=== PATIENT | female | born 1950 | race Two or more races ===

== ENCOUNTER 2018-07-23 10:38 | Emergency (ER) | payer MEDICARE, BC ==
[~2018-07-23] VITALS: Ht 157.5 cm; Wt 81.4 kg
[2018-07-23] MEDS ORDERED: proMETHazine 25mg rectal suppository RC ONE (12:00)
[2018-07-23] MEDS ORDERED: HYDROmorphone 1 mg/ml syringe IM ONE ×2 (12:35→12:55)
[2018-07-23 13:19] VITALS: BP 149/83
== END 2018-07-23 13:20 | disposition home or self-care (01) ==
LOC: ER 10:38
DX: M67.912 Unspecified disorder of synovium and tendon, left shoulder (principal); G89.29 Other chronic pain; Z88.6 Allergy status to analgesic agent; Z88.8 Allergy status to other drugs, medicaments and biological substances; Z91.018 Allergy to other foods
CPT/HCPCS: 96372; 99283; J1170

== ENCOUNTER 2021-12-21 10:33 | Inpatient (IN) | payer MEDICARE, BC ==
[2021-12-17 11:59] LABS: BASOPHILS % (AUTO) 0.6 % (0-1); EOSINOPHILS # (AUTO) 0.2 X10'3 (0-0.9); LYMPHOCYTES # (AUTO) 2.3 X10'3 (1.1-4.8); LYMPHOCYTES % (AUTO) 36.2 % (21-51); MEAN CORPUSCULAR HEMOGLOBIN 30.5 PG (27.0-31.0); MEAN CORPUSCULAR HGB CONC 32.9 g/dL (33.0-36.5); MEAN CORPUSCULAR VOLUME 92.6 FL (78-98); MEAN PLATELET VOLUME 7.8 FL (7.4-10.4); MONOCYTES # (AUTO) 0.6 X10'3 (0-0.9); MONOCYTES % (AUTO) 9.8 % (2-12); NEUTROPHILS # (AUTO) 3.1 X10'3 (1.8-7.7); NEUTROPHILS % (AUTO) 50.4 % (42-75); PRE OP HEMATOCRIT 42.1 % (35.0-45.0); PRE OP HEMOGLOBIN 13.8 g/dL (12.0-16.0); PRE OP PLATELET COUNT 249 X10'3 (140-440); RED BLOOD COUNT 4.54 X10'6 (4.20-5.60); RED CELL DISTRIBUTION WIDTH 13.8 % (11.5-14.5)
[2021-12-17 12:20] LABS: ALBUMIN 3.8 G/DL (3.4-5.0); ALKALINE PHOSPHATASE 100 IU/L (46-116); BLOOD UREA NITROGEN 11 MG/DL (7-18); BUN/CREATININE RATIO 19.6 (6.6-38.0); CALCIUM 9.2 MG/DL (8.5-10.1); CHLORIDE 106 MMOL/L (99-107); CREATININE 0.56 MG/DL (0.40-0.90); PRE OP ALT 62 U/L (30-65); PRE OP ANION GAP 11 (8-16); PRE OP AST 65 U/L (10-37); PRE OP BILIRUB, TOTAL 0.8 MG/DL (0.0-1.0); PRE OP GLUCOSE 148 MG/DL (70-104); PRE OP POTASSIUM 3.9 MMOL/L (3.4-5.1); PRE OP SODIUM 144 MMOL/L (135-145); TOTAL CARBON DIOXIDE 27.5 MMOL/L (24-32); TOTAL PROTEIN 7.5 G/DL (6.4-8.2); eGFR > 90 ML/MIN
[~2021-12-21] VITALS: Ht 157.5 cm; Wt 81.8 kg
[2021-12-21] VITALS (17 sets, daily range): BP systolic 124–165; BP diastolic 64–84
[~2021-12-21 10:33] MED LIST: CHOL20002 PO; ELDERBERRY GUMMY; EMPA10TA PO; GARLIC; GING550C4 PO; MEGA RED; MULTIVITAMIN PO; OMEG-133 PO; PREVAGEN; TURM500C4 PO; famotidine 20mg tablet PO ONE; ringers solution, lacted 1,000 ML IV SCH
--- NOTE | 2021-12-21 13:00 | NUR ---
PT PREPARED FOR RIGHT SHOULDER SURGERY, IV STARTED, PT WAS A VERY DIFFICULT STICK, LEFT THUMB IMMOBILIZER REMOVED FROM PT AND PLACED IN BELONGINGS BAG, PT BECAME NAUSEATED AFTER TXA TABS BUT DID NOT VOMIT. PT SENT TO THE OPERATING ROOM WITH HER CONTACT LENS IN, SCREENER OPERATOR AND ANESTHESIA AWARE. PT WITH INCREASED PAIN IN HER BACK FROM LYING ON STRETCHER, REPOSITIONED AND WARM BLANKET GIVEN WITH GOOD RESULTS BILATERAL ARMS WITH SWELLING AND PAIN, LEFT HAND WITH DISLOCATED THUMB RECENTLY, THUMB AREA PAINFUL AND SLIGHTLY SWOLLEN, RIGHT HAD HAS HAD MUTPLE SURGERIES ON IT, PAINFUL WITH SWELLING. BILATERAL RADIAL PULSES PRESENT, SENSATION INTACT. PT ABLE TO MOVE BOTH HANDS TO COMMAND. PINK WARM AND DRY
[2021-12-21] MEDS ORDERED: vancomycin/NS 1 GM in NS 250 ML IV ONE (13:15)
[2021-12-21] MEDS ORDERED: cefazolin/dext.iso 2gm/50ml IV ONE (13:30)
[2021-12-21] MEDS ORDERED: tranexamic acid 650mg tablet PO ONE (13:30)
[2021-12-21] MEDS ORDERED: ROPIVAcaine 0.5% (5mg/ml) 30ml vial ONE ×2 (14:07→14:30)
[2021-12-21] MEDS ORDERED: midazolam 1 mg/ML 2ml injection ONE (14:13)
[2021-12-21] MEDS ORDERED: FENTANYL CITRATE/PF 50 MCG/1 ML VIAL ONE ×3 (14:13→16:29)
[2021-12-21] MEDS ORDERED: rocuronium 10mg/ml inj IV ONE (14:30)
[2021-12-21] MEDS ORDERED: LIDOcaine 1%/PF 5ML 10 MG/ML VIAL ONE (14:30)
[2021-12-21] MEDS ORDERED: propofol inj 20 ML IV ONE (14:30)
[2021-12-21] MEDS ORDERED: sevoflurane 250ml liquid IH ONE (14:32)
[2021-12-21] MEDS ORDERED: ondansetron/PF 4mg/2ml inj IV PRN ×2 (15:20→16:25)
[2021-12-21] MEDS ORDERED: ringers solution, lacted 1,000 ML IV SCH (15:20)
[2021-12-21] MEDS ORDERED: meperidine/PF 25mg/ml syringe IV PRN (15:20)
[2021-12-21] MEDS ORDERED: neostigmine methylsulfate 1 MG/ML 10ml vial ONE (16:13)
[2021-12-21] MEDS ORDERED: dexamethasone sod phosphate 4mg/ml inj. ONE (16:13)
[2021-12-21] MEDS ORDERED: ondansetron/PF 4mg/2ml inj ONE (16:13)
[2021-12-21] MEDS ORDERED: glycopyrrolate 0.2mg/ml inj ONE (16:13)
[2021-12-21] MEDS ORDERED: diphenhydrAMINE 25mg capsule PO PRN ×2 (16:25)
[2021-12-21] MEDS ORDERED: magnesium hydroxide 30ml (MOM) UD suspension PO PRN (16:25)
[2021-12-21] MEDS ORDERED: bisacodyl 10mg suppository rectal RC PRN (16:25)
[2021-12-21] MEDS ORDERED: HYDROmorphone inj. 0.5 MG/0.5 ML DISP.SYRIN IV PRN (16:25)
[2021-12-21] MEDS ORDERED: HYDROmorphone 1 mg/ml syringe IV PRN (16:25)
[2021-12-21] MEDS ORDERED: oxyCODONE IR 5mg (immed. release) tablet PO PRN ×2 (16:25)
[2021-12-21] MEDS ORDERED: naloxone 0.4 mg/ml inj IV PRN (16:25)
[2021-12-21] MEDS ORDERED: acetaminophen 325mg tablet PO PRN (16:25)
--- NOTE | 2021-12-21 16:32 | NUR ---
Received from OR via BED, accompanied by Anesthesiologist DR GORMAN and report given by Anesthesiologist AND APPRENTICESHIP REPRESENTATIVE. PT DROWSY, DENIES PAIN. RIGHT SHOULDER W/ SHOULDER WRAP, SALVADOR KNOX, POWDER PACK, SLING. Addendum: 12/21/21 at 1719 by Carey Cartagena RN Amended: Links added.
[2021-12-21] MEDS: ROPIVAcaine 0.2%/PF PUMP/bolus 545 ML INTERSCALE SCH (17:27)
--- NOTE | 2021-12-21 17:52 | NUR ---
Report called to receiving nurse. Transferred via BED ON BAGS OF Belongings WITH CELL PHONE TO ROOM 401. RECEIVING RN AT BEDSIDE TO RECEIVE PT, BLL, CALL LIGHT GIVEN, SIDE RAILS UP X 2. Special Issues communicated to receiving nurse. YES. Addendum: 12/21/21 at 1801 by Carey Cartagena RN Amended: Links added.
--- NOTE | 2021-12-21 18:00 | NUR ---
Pt arrived to the floor at 1800, patient arrived stable, vitals are stable and patient is A&O. Did not have time to do a full assessment before end of shift.
[2021-12-21] MEDS: potassium cl 20mEq in 1/2 NS 1,000 ML IV SCH (19:29)
[2021-12-21] MEDS: sennosides 8.6mg tablet PO SCH (19:30)
[2021-12-21] MEDS: acetaminophen 325mg tablet PO SCH (19:38)
[2021-12-21] MEDS ORDERED: non-formulary drug (Turmeric/Turmeric Root Extract (Turmeric 500 mg Capsule) 1 CAP) PO SCH (20:00)
[2021-12-21] MEDS ORDERED: vancomycin/NS 1 GM ADD-VANTAGE 250 ML IV SCH (20:00)
[2021-12-21] MEDS: ceFAZolin/D5W- 1GM premix 50 ML IV SCH (23:10)
[2021-12-22] MEDS: potassium cl 20mEq in 1/2 NS 1,000 ML IV SCH ×4 (00:25→19:32)
[2021-12-22 02:00] VITALS: BP 124/63
[2021-12-22] MEDS: acetaminophen 325mg tablet PO SCH ×5 (02:07→20:41)
[2021-12-22 06:00] VITALS: BP 120/63
[2021-12-22 07:27] LABS: BASOPHILS % (AUTO) 0.1 % (0-1); EOSINOPHILS % (AUTO) 0 % (0-6); HEMATOCRIT 38.2 % (35.0-45.0); HEMOGLOBIN 12.9 g/dl (12.0-16.0); LYMPHOCYTES # (AUTO) 1.4 X10'3 (1.1-4.8); LYMPHOCYTES % (AUTO) 17.3 % (21-51); MEAN CORPUSCULAR HEMOGLOBIN 31.9 PG (27.0-31.0); MEAN CORPUSCULAR HGB CONC 33.8 g/dL (33.0-36.5); MEAN CORPUSCULAR VOLUME 94.4 FL (78-98); MEAN PLATELET VOLUME 8.4 FL (7.4-10.4); MONOCYTES # (AUTO) 0.5 X10'3 (0-0.9); MONOCYTES % (AUTO) 6.1 % (2-12); NEUTROPHILS # (AUTO) 6.2 X10'3 (1.8-7.7); NEUTROPHILS % (AUTO) 76.5 % (42-75); PLATELET COUNT 243 X10'3 (140-440); RED BLOOD COUNT 4.04 X10'6 (4.20-5.60); RED CELL DISTRIBUTION WIDTH 13.9 % (11.5-14.5); WHITE BLOOD COUNT 8.2 X10'3 (4.5-11.0)
[2021-12-22 07:32] LABS: ANION GAP 12 (8-16); CHLORIDE 106 MMOL/L (99-107); POTASSIUM 4.3 MMOL/L (3.5-5.1); SODIUM 140 MMOL/L (135-145)
[2021-12-22] MEDS ORDERED: GINGER ROOT PO SCH (08:00)
[2021-12-22] MEDS: aspirin 325mg tablet PO SCH (08:21)
[2021-12-22] MEDS: EMPAGLIFLOZIN 10 MG TABLET PO SCH (08:21)
[2021-12-22] MEDS: cholecalciferol (vitamin D3) 1,000 unit (25mcg) tablet PO SCH (08:22)
[2021-12-22] MEDS: omega-3 acid ethyl esters 1GM capsule PO SCH (08:22)
[2021-12-22] MEDS: ceFAZolin/D5W- 1GM premix 50 ML IV SCH (09:13)
[2021-12-22 10:00] VITALS: BP 141/78
--- NOTE | 2021-12-22 13:17 | NUR ---
DM/Joint surgery consults: Pt s/p R shoulder surgery this admit hx T2DM A1C 8.0% this admit per EMR. Pt seen by RD for written/verbal DM/high protein eds w/ RD contact information provided. Pt reports takes no DM meds at home though does have appointment in near future w/ new MD and dietitian. Pt reports typically eats convenience foods from the store though is aware of appropriate carb portions and practices moderation. RD encouraged pt to contact dietitian's office if further questions/concerns. Pt reports unable to cut foods post-op and is agreeable to double proteins BIDLD for satiety; dietary notified. Addendum: 12/22/21 at [address] Amended: Links added.
--- NOTE | 2021-12-22 17:20 | NUR ---
On Q increased from 10 to 12 for pain /. New On Q ball requested.
[2021-12-22 18:00] VITALS: BP 145/56
--- NOTE | 2021-12-22 18:13 | NUR ---
Problems reprioritized. Patient report given, questions answered & plan of care reviewed with Abby RANGEL.
[2021-12-22] MEDS: sennosides 8.6mg tablet PO SCH (19:28)
[2021-12-22 22:00] VITALS: BP 130/68
[2021-12-23] MEDS: acetaminophen 325mg tablet PO SCH ×3 (02:00→14:00)
--- NOTE | 2021-12-23 06:23 | NUR ---
Problems reprioritized. Patient report given, questions answered & plan of care reviewed with wilfredo Merchant.
--- NOTE | 2021-12-23 06:31 | NUR ---
Patient in room ORTHO 4015. I have received report from barron RANGEL and had the opportunity to ask questions and assume patient care.
[2021-12-23 07:21] VITALS: BP 118/57
[2021-12-23 07:51] LABS: BASOPHILS % (AUTO) 0.2 % (0-1); EOSINOPHILS # (AUTO) 0.1 X10'3 (0-0.9); EOSINOPHILS % (AUTO) 1.3 % (0-6); HEMATOCRIT 38.3 % (35.0-45.0); HEMOGLOBIN 12.9 g/dl (12.0-16.0); LYMPHOCYTES # (AUTO) 2.5 X10'3 (1.1-4.8); LYMPHOCYTES % (AUTO) 24.1 % (21-51); MEAN CORPUSCULAR HEMOGLOBIN 31.8 PG (27.0-31.0); MEAN CORPUSCULAR HGB CONC 33.6 g/dL (33.0-36.5); MEAN CORPUSCULAR VOLUME 94.7 FL (78-98); MEAN PLATELET VOLUME 9.2 FL (7.4-10.4); MONOCYTES # (AUTO) 1.1 X10'3 (0-0.9); MONOCYTES % (AUTO) 10.5 % (2-12); NEUTROPHILS # (AUTO) 6.6 X10'3 (1.8-7.7); NEUTROPHILS % (AUTO) 63.9 % (42-75); PLATELET COUNT 236 X10'3 (140-440); RED BLOOD COUNT 4.05 X10'6 (4.20-5.60); RED CELL DISTRIBUTION WIDTH 14.1 % (11.5-14.5); WHITE BLOOD COUNT 10.3 X10'3 (4.5-11.0)
[2021-12-23] MEDS: potassium cl 20mEq in 1/2 NS 1,000 ML IV SCH (08:25)
[2021-12-23] MEDS: EMPAGLIFLOZIN 10 MG TABLET PO SCH (08:25)
[2021-12-23] MEDS: ROPIVAcaine 0.2% (10 MG/5 ML) BOLUS INJECTION INTERSCALE PRN ×2 (08:25→19:40)
[2021-12-23] MEDS: cholecalciferol (vitamin D3) 1,000 unit (25mcg) tablet PO SCH (08:26)
[2021-12-23] MEDS: omega-3 acid ethyl esters 1GM capsule PO SCH (08:26)
[2021-12-23] MEDS: aspirin 325mg tablet PO SCH (08:26)
[2021-12-23 10:00] VITALS: BP 129/66
[2021-12-23] MEDS: ROPIVAcaine 0.2%/PF PUMP/bolus 545 ML INTERSCALE SCH (15:20)
[2021-12-23] MEDS ORDERED: acetaminophen 325mg tablet PO PRN (16:25)
[2021-12-23 18:00] VITALS: BP 163/67
--- NOTE | 2021-12-23 18:05 | NUR ---
Patient in room ORTHO 4015. I have received report from CLAIRE Merchant and had the opportunity to ask questions and assume patient care.
--- NOTE | 2021-12-23 18:52 | NUR ---
patient appears stable ON Q ball replaced. patient up to BR working with PT. BS stable. DRessing CDI. report given to Annie RANGEL
[2021-12-23] MEDS: sennosides 8.6mg tablet PO SCH (20:02)
[2021-12-23 22:00] VITALS: BP 143/54
[2021-12-24 05:00] VITALS: BP_SYST 126; BP_SYST 127; BP_DIAS 66; BP_DIAS 67
[2021-12-24 06:23] LABS: BASOPHILS % (AUTO) 0.4 % (0-1); EOSINOPHILS # (AUTO) 0.3 X10'3 (0-0.9); EOSINOPHILS % (AUTO) 3.6 % (0-6); HEMATOCRIT 38.7 % (35.0-45.0); LYMPHOCYTES # (AUTO) 2.8 X10'3 (1.1-4.8); LYMPHOCYTES % (AUTO) 32.8 % (21-51); MEAN CORPUSCULAR HEMOGLOBIN 31.8 PG (27.0-31.0); MEAN CORPUSCULAR HGB CONC 33.5 g/dL (33.0-36.5); MEAN CORPUSCULAR VOLUME 94.9 FL (78-98); MEAN PLATELET VOLUME 8.3 FL (7.4-10.4); MONOCYTES # (AUTO) 0.9 X10'3 (0-0.9); MONOCYTES % (AUTO) 10.3 % (2-12); NEUTROPHILS # (AUTO) 4.5 X10'3 (1.8-7.7); NEUTROPHILS % (AUTO) 52.9 % (42-75); PLATELET COUNT 238 X10'3 (140-440); RED BLOOD COUNT 4.08 X10'6 (4.20-5.60); RED CELL DISTRIBUTION WIDTH 13.8 % (11.5-14.5); WHITE BLOOD COUNT 8.4 X10'3 (4.5-11.0)
--- NOTE | 2021-12-24 06:37 | NUR ---
Patient in room ORTHO 4015. I have received report from AFRICA RANGEL and had the opportunity to ask questions and assume patient care.
[2021-12-24] MEDS: aspirin 325mg tablet PO SCH (08:04)
[2021-12-24] MEDS: EMPAGLIFLOZIN 10 MG TABLET PO SCH (08:04)
[2021-12-24] MEDS: omega-3 acid ethyl esters 1GM capsule PO SCH (08:04)
[2021-12-24] MEDS: cholecalciferol (vitamin D3) 1,000 unit (25mcg) tablet PO SCH (08:04)
[2021-12-24 10:00] VITALS: BP 140/66
--- NOTE | 2021-12-24 15:11 | NUR ---
PATIENT DISCHARGED TRANSPORTED TO [facility] VIA [facility]. PIV REMOVED, REPORT CALLED
== END 2021-12-24 15:00 | DRG 483 ==
LOC: PAS IN 10:44 → ORTHO 4S 17:48
PROVIDERS: ADMIT Orthopaedic Surgery; ATTEND Orthopaedic Surgery
PROC: 0LS30ZZ Reposition Right Upper Arm Tendon, Open Approach (ICD-10-PCS; 2021-12-21)
PROC: 3E0T3BZ Introduction of Anesthetic Agent into Peripheral Nerves and Plexi, Percutaneous Approach (ICD-10-PCS; 2021-12-21)
PROC: 0RRJ00Z Replacement of Right Shoulder Joint with Reverse Ball and Socket Synthetic Substitute, Open Approach (ICD-10-PCS; principal; 2021-12-21 14:32)
DX: M19.011 Primary osteoarthritis, right shoulder (principal); M75.101 Unspecified rotator cuff tear or rupture of right shoulder, not specified as traumatic; M77.9 Enthesopathy, unspecified
CPT/HCPCS: 36415; 80051; 80053; 82948; 83036; 85025; 87081; 87635; 97110; 97116; 97161; 97530; A4618; A7000; C1776; G0378; J0690; J1100; J2175; J2250; J2405; J2704; J2710; J2795; J3010; J3370; J3480; J3490; J7120

== ENCOUNTER 2022-08-15 07:18 | Day surgery (SDC) | payer MEDICARE, BC ==
[2022-08-10 17:23] LABS: ALBUMIN 3.5 G/DL (3.4-5.0); ALKALINE PHOSPHATASE 96 IU/L (46-116); BASOPHILS % (AUTO) 0.4 % (0-1); BLOOD UREA NITROGEN 17 MG/DL (7-18); BUN/CREATININE RATIO 22.7 (6.6-38.0); CALCIUM 9.3 MG/DL (8.5-10.1); CHLORIDE 106 MMOL/L (99-107); CREATININE 0.75 MG/DL (0.40-0.90); EOSINOPHILS # (AUTO) 0.2 X10'3 (0-0.9); EOSINOPHILS % (AUTO) 2.4 % (0-6); LYMPHOCYTES # (AUTO) 2.4 X10'3 (1.1-4.8); LYMPHOCYTES % (AUTO) 34.8 % (21-51); MEAN CORPUSCULAR HEMOGLOBIN 31.6 PG (27.0-31.0); MEAN CORPUSCULAR HGB CONC 33.9 g/dL (33.0-36.5); MEAN CORPUSCULAR VOLUME 93.2 FL (78-98); MEAN PLATELET VOLUME 7.9 FL (7.4-10.4); MONOCYTES # (AUTO) 0.7 X10'3 (0-0.9); MONOCYTES % (AUTO) 10.1 % (2-12); NEUTROPHILS # (AUTO) 3.7 X10'3 (1.8-7.7); NEUTROPHILS % (AUTO) 52.3 % (42-75); PRE OP ALT 29 U/L (30-65); PRE OP ANION GAP 16 (8-16); PRE OP AST 24 U/L (10-37); PRE OP BILIRUB, TOTAL 0.5 MG/DL (0.0-1.0); PRE OP GLUCOSE 190 MG/DL (70-104); PRE OP HEMATOCRIT 41.8 % (35.0-45.0); PRE OP HEMOGLOBIN 14.2 g/dL (12.0-16.0); PRE OP PLATELET COUNT 241 X10'3 (140-440); PRE OP POTASSIUM 3.9 MMOL/L (3.4-5.1); PRE OP SODIUM 148 MMOL/L (135-145); RED BLOOD COUNT 4.48 X10'6 (4.20-5.60); RED CELL DISTRIBUTION WIDTH 13.7 % (11.5-14.5); TOTAL CARBON DIOXIDE 26.3 MMOL/L (24-32); TOTAL PROTEIN 7.1 G/DL (6.4-8.2); eGFR 76 ML/MIN
[2022-08-15] VITALS (11 sets, daily range): BP systolic 128–157; BP diastolic 65–89
[~2022-08-15] VITALS: Ht 157.5 cm; Wt 78.2 kg
[~2022-08-15 07:18] MED LIST changes: +BUPIVAcaine 0.5% inj/PF 30 ML ONE; -CHOL20002 PO; +CHOL50002 PO; -ELDERBERRY GUMMY; -GARLIC; -MEGA RED; +MULT-1130 PO; -MULTIVITAMIN PO; -OMEG-133 PO; -PREVAGEN; +PREVAGEN PO; -TURM500C4 PO; +ceFAZolin inj. 2,000 MG in dextrose 5%-water 100 ML IV ONE
[2022-08-15] MEDS ORDERED: LIDOcaine 1% 30ml preserv. free vial ONE (07:32)
[2022-08-15] MEDS ORDERED: LIDOcaine 1% (10mg/ml) 2ml vial ONE (08:46)
[2022-08-15] MEDS ORDERED: fentaNYL/PF 50MCG/1 ML 2ML syringe ONE (09:46)
[2022-08-15] MEDS ORDERED: MIDAZolam 1 MG/ML 5ML VIAL ONE ×2 (09:46→10:10)
[2022-08-15] MEDS ORDERED: LIDOcaine 2% (20mg/ml) 5ml vial ONE (10:07)
[2022-08-15] MEDS ORDERED: dexamethasone sod phosphate 4mg/ml inj. ONE (10:07)
[2022-08-15] MEDS ORDERED: ROPIVAcaine 0.5% (5mg/ml) 30ml vial ONE (10:07)
[2022-08-15] MEDS ORDERED: LIDOcaine 1%/PF 5ML 10 MG/ML VIAL ONE (10:07)
[2022-08-15] MEDS ORDERED: ondansetron/PF 4mg/2ml inj IV PRN (10:25)
[2022-08-15] MEDS ORDERED: meperidine/PF 25mg/ml syringe IV PRN ×3 (10:25)
[2022-08-15] MEDS ORDERED: proCHLORperazine 10 MG/2 ml inj IV PRN (10:25)
[2022-08-15] MEDS ORDERED: ringers solution, lacted 1,000 ML IV SCH (10:25)
[2022-08-15] MEDS ORDERED: BUPIVAcaine 0.5% inj/PF 30 ml vial IJ ONE (10:25)
--- NOTE | 2022-08-15 10:47 | NUR ---
Received from OR via [facility], accompanied by Anesthesiologist and report given by VANCE Anesthesiologist. PATIENT WAKING UP, DENIES PAIN, V/S WNL, SCD ON, PIV 20G TO RIGHT WRIST, LEFT WRIST DRESSING C/D/I. APPLIED SLING, ICE AND ELEVATED LUE. Addendum: 08/15/22 at 1203 by Colin White RN Amended: Links added.
--- NOTE | 2022-08-15 12:02 | NUR ---
ALL DISCHARGE CRITERIA HAS BEEN MET. VSS, PAIN AT A TOLERABLE LEVEL, VOIDING AND ABLE TO SAFELY AMBULATE AND TRANSFER SELF. IV TAKEN OUT WITHOUT ANY COMPLICATIONS. ALL DISCHARGE INSTRUCTIONS COVERED WITH PATIENT AND ALL QUESTIONS ANSWERED. PATIENT TAKEN OUT VIA WHEELCHAIR WITH ALL BELONGINGS TO PERSONAL VEHICLE WHERE FRIEND DROVE PATIENT HOME. Addendum: 08/15/22 at 1204 by Colin White RN Amended: Links added.
== END 2022-08-15 12:02 | disposition home or self-care (01) ==
LOC: PAS 07:18
PROVIDERS: ATTEND Orthopaedic Surgery Hand Surgery
DX: M18.12 Unilateral primary osteoarthritis of first carpometacarpal joint, left hand (principal); M79.645 Pain in left finger(s); I44.0 Atrioventricular block, first degree; Z88.6 Allergy status to analgesic agent; Z88.5 Allergy status to narcotic agent; Z88.8 Allergy status to other drugs, medicaments and biological substances; Z88.4 Allergy status to anesthetic agent; Z91.018 Allergy to other foods; Z79.899 Other long term (current) drug therapy; G89.18 Other acute postprocedural pain; Z90.710 Acquired absence of both cervix and uterus; Z98.890 Other specified postprocedural states
CPT/HCPCS: 25312; 25447; 36415; 64417; 76942; 80053; 82948; 85025; 93005; A6222; J0690; J1100; J2250; J2405; J2795; J3010; J3490; J7030; J7060; J7120; S0020; Z7506; Z7508; Z7512; A4215; A4565; A4618; A7000

== ENCOUNTER 2023-06-23 06:46 | Day surgery (SDC) | payer MEDICARE, BC ==
[2023-06-20 16:22] LABS: BASOPHILS % (AUTO) 0.1 % (0-1); EOSINOPHILS # (AUTO) 0.2 X10'3 (0-0.9); EOSINOPHILS % (AUTO) 3.5 % (0-6); LYMPHOCYTES # (AUTO) 1.9 X10'3 (1.1-4.8); LYMPHOCYTES % (AUTO) 34.8 % (21-51); MEAN CORPUSCULAR HEMOGLOBIN 31.1 PG (27.0-31.0); MEAN CORPUSCULAR HGB CONC 32.8 g/dL (33.0-36.5); MEAN CORPUSCULAR VOLUME 94.8 FL (78-98); MEAN PLATELET VOLUME 7.8 FL (7.4-10.4); MONOCYTES # (AUTO) 0.5 X10'3 (0-0.9); MONOCYTES % (AUTO) 9.4 % (2-12); NEUTROPHILS # (AUTO) 2.9 X10'3 (1.8-7.7); NEUTROPHILS % (AUTO) 52.2 % (42-75); PRE OP HEMATOCRIT 42.5 % (35.0-45.0); PRE OP HEMOGLOBIN 13.9 g/dL (12.0-16.0); PRE OP PLATELET COUNT 220 X10'3 (140-440); PRE OP WHITE BLOOD COUNT 5.6 10'3 (4.8-10.8); RED BLOOD COUNT 4.48 X10'6 (4.20-5.60); RED CELL DISTRIBUTION WIDTH 14.2 % (11.5-14.5)
[2023-06-20 16:40] LABS: ALBUMIN 3.7 G/DL (3.4-5.0); ALKALINE PHOSPHATASE 85 IU/L (46-116); BLOOD UREA NITROGEN 11 MG/DL (7-18); BUN/CREATININE RATIO 13.6 (10.0-20.0); CALCIUM 9.4 MG/DL (8.5-10.1); CHLORIDE 105 MMOL/L (99-107); CREATININE 0.81 MG/DL (0.40-0.90); PRE OP ALT 34 U/L (30-65); PRE OP ANION GAP 6 (8-16); PRE OP AST 37 U/L (10-37); PRE OP BILIRUB, TOTAL 0.7 MG/DL (0.0-1.0); PRE OP SODIUM 141 MMOL/L (135-145); TOTAL CARBON DIOXIDE 30.5 MMOL/L (24-32); TOTAL PROTEIN 7.3 G/DL (6.4-8.2); eGFR 69 ML/MIN
[2023-06-20 17:03] LABS: PRE OP GLUCOSE 247 MG/DL (70-104); PRE OP POTASSIUM 3.3 MMOL/L (3.4-5.1)
[2023-06-23] VITALS (7 sets, daily range): BP systolic 113–137; BP diastolic 52–77; PULSE 66–78; RESP 14–16; TEMP 97.9; O2SAT 96–98
[~2023-06-23] VITALS: Ht 157.5 cm; Wt 79.1 kg
[~2023-06-23 06:46] MED LIST changes: -BUPIVAcaine 0.5% inj/PF 30 ML ONE; -CHOL50002 PO; +CHOL50004 PO; +COFF1CAP3; -GING550C4 PO; +GREEN VIBRANCE; +MECO10005; -MULT-1130 PO; +ROSU20TA73 PO; +SUPER BEETS; +[UNRECOGNIZED DRUG - OTHER]; -ceFAZolin inj. 2,000 MG in dextrose 5%-water 100 ML IV ONE; +cefazolin 2gm/D5W 100mL 100 ML IV ONE
[2023-06-23] MEDS ORDERED: labetalol 20mg/4ml (5mg/ml) syringe IV PRN (07:50)
[2023-06-23] MEDS ORDERED: proCHLORperazine 10 MG/2 ml inj IV PRN (07:50)
[2023-06-23] MEDS ORDERED: ringers solution, lacted 1,000 ML IV SCH (07:50)
[2023-06-23] MEDS ORDERED: proMETHazine 25mg rectal suppository RC PRN (07:50)
[2023-06-23] MEDS ORDERED: meperidine/PF 25mg/ml syringe IV PRN ×2 (07:50)
[2023-06-23] MEDS ORDERED: ondansetron/PF 4mg/2ml inj IV PRN (07:50)
[2023-06-23] MEDS ORDERED: fentaNYL/PF 50MCG/1 ML 2ML syringe ONE (08:59)
[2023-06-23] MEDS ORDERED: MIDAZolam 1mg/ml 10ml vial ONE (08:59)
[2023-06-23] MEDS ORDERED: LIDOcaine 0.5% (5mg/ml) 50ml vial ONE (09:00)
[2023-06-23] MEDS ORDERED: BUPIVAcaine/PF 2.5 mg/ml (0.25%) 30ml vial ONE (09:12)
--- NOTE | 2023-06-23 09:45 | NUR ---
Received from OR via BED, accompanied by Anesthesiologist and report given by Anesthesiologist. PATIENT WAKING UP, NO S/S OF PAIN, V/S WNL, SCD ON, 20G TO RUE, LEFT WRIST DRESSING CDI W/ SLING. ICE AND ELEVATED RUE.
--- NOTE | 2023-06-23 10:15 | NUR ---
PATIENT A&OX4, DENIES PAIN, V/S WNL, SCD OFF, 20G TO RUE D/C, LEFT WRIST DRESSING CDI W/ SLING. ICE AND ELEVATED LUE. I HAVE REVIEWED D/C INSTRUCTIONS WITH PATIENT INSTRUCTIONS WITH PATIENT AND THEY HAVE VERBALIZED UNDERSTANDING. PATIENT D/C HOME WITH ALL BELONGINGS AND FAMILY TRANSPORTED PATIENT HOME.
== END 2023-06-23 10:15 | disposition home or self-care (01) ==
LOC: PAS 06:46
PROVIDERS: ATTEND Orthopaedic Surgery Hand Surgery
DX: G56.02 Carpal tunnel syndrome, left upper limb (principal); M72.0 Palmar fascial fibromatosis [Dupuytren]; M65.332 Trigger finger, left middle finger; Z79.82 Long term (current) use of aspirin; Z79.899 Other long term (current) drug therapy; Z90.49 Acquired absence of other specified parts of digestive tract; Z90.710 Acquired absence of both cervix and uterus; Z96.619 Presence of unspecified artificial shoulder joint; Z98.49 Cataract extraction status, unspecified eye; Z98.890 Other specified postprocedural states; Z88.5 Allergy status to narcotic agent; Z88.6 Allergy status to analgesic agent; Z88.8 Allergy status to other drugs, medicaments and biological substances
CPT/HCPCS: 25111; 26055; 26121; 36415; 64721; 80053; 82948; 85025; J0690; J2250; J3010; J3490; J7030; J7120; Z7506; Z7512; A4215; A6449

== ENCOUNTER 2023-07-10 11:16 | Inpatient (IN) | payer MEDICARE, BC ==
[2023-07-05 11:00] LABS: BASOPHILS % (AUTO) 0.4 % (0-1); EOSINOPHILS # (AUTO) 0.3 X10'3 (0-0.9); EOSINOPHILS % (AUTO) 4.2 % (0-6); LYMPHOCYTES # (AUTO) 2.4 X10'3 (1.1-4.8); LYMPHOCYTES % (AUTO) 32.9 % (21-51); MEAN CORPUSCULAR HEMOGLOBIN 31.4 PG (27.0-31.0); MEAN CORPUSCULAR HGB CONC 33.7 g/dL (33.0-36.5); MEAN CORPUSCULAR VOLUME 93.4 FL (78-98); MEAN PLATELET VOLUME 7.8 FL (7.4-10.4); MONOCYTES # (AUTO) 0.7 X10'3 (0-0.9); MONOCYTES % (AUTO) 9.1 % (2-12); NEUTROPHILS # (AUTO) 3.9 X10'3 (1.8-7.7); NEUTROPHILS % (AUTO) 53.4 % (42-75); PRE OP HEMATOCRIT 43.5 % (35.0-45.0); PRE OP HEMOGLOBIN 14.6 g/dL (12.0-16.0); PRE OP PLATELET COUNT 236 X10'3 (140-440); PRE OP WHITE BLOOD COUNT 7.2 10'3 (4.8-10.8); RED BLOOD COUNT 4.66 X10'6 (4.20-5.60)
[2023-07-05 11:04] LABS: ALBUMIN 4.1 G/DL (3.4-5.0); ALBUMIN/GLOBULIN RATIO 1.1 (1.1-1.5); ALKALINE PHOSPHATASE 101 IU/L (46-116); BLOOD UREA NITROGEN 10 MG/DL (7-18); BUN/CREATININE RATIO 16.1 (10.0-20.0); CALCIUM 9.5 MG/DL (8.5-10.1); CHLORIDE 105 MMOL/L (99-107); CREATININE 0.62 MG/DL (0.40-0.90); PRE OP ALT 32 U/L (30-65); PRE OP ANION GAP 10 (8-16); PRE OP AST 31 U/L (10-37); PRE OP BILIRUB, TOTAL 0.8 MG/DL (0.0-1.0); PRE OP GLUCOSE 130 MG/DL (70-104); PRE OP SODIUM 141 MMOL/L (135-145); TOTAL CARBON DIOXIDE 26.1 MMOL/L (24-32); TOTAL PROTEIN 7.8 G/DL (6.4-8.2); eGFR > 90 ML/MIN
[2023-07-10] VITALS (20 sets, daily range): BP systolic 78–142; BP diastolic 33–74; PULSE 67–118; RESP 12–22; TEMP 98–98.6; O2SAT 90–100
[~2023-07-10] VITALS: Ht 157.5 cm; Wt 78.4 kg
[~2023-07-10 11:16] MED LIST changes: -CHOL50004 PO; -COFF1CAP3; +FISH1CAP15 PO; -GREEN VIBRANCE; -MECO10005; -SUPER BEETS; -[UNRECOGNIZED DRUG - OTHER]; +[UNRECOGNIZED DRUG - OTHER] PO; +tranexamic acid 650mg tablet PO ONE; +vancomycin 1,500 MG in NS 300ml IV soln IV ONE
[2023-07-10] MEDS ORDERED: ROPIVAcaine 0.5% (5mg/ml) 30ml vial ONE ×2 (12:55→14:22)
[2023-07-10] MEDS ORDERED: morphine 10mg/ml inj. ONE (12:55)
[2023-07-10] MEDS ORDERED: midazolam 1 mg/ML 2ml injection ONE (12:55)
[2023-07-10] MEDS ORDERED: dexamethasone sod phosphate 4mg/ml inj. ONE (12:55)
[2023-07-10] MEDS ORDERED: propofol 10mg/ml 20ml vial IV ONE (13:15)
[2023-07-10] MEDS ORDERED: LIDOcaine 2% (20mg/ml) 5ml vial ONE (13:15)
[2023-07-10] MEDS ORDERED: desflurane 240ml liquid inh. IH ONE (13:15)
[2023-07-10] MEDS ORDERED: metoclopramide 5 mg/ml inj ONE (13:23)
[2023-07-10] MEDS ORDERED: ondansetron/PF 4mg/2ml inj ONE (13:23)
--- NOTE | 2023-07-10 13:32 | NUR ---
PT HAD EPISODE OF EMESIS SOON AFTER VANCO WAS STARTED. VANCO IMMEDIATELY STOPPED, ANESTHESIA NOTIFIED. NO NEW ORDERS RECEIVED. PT DID RECEIVE PO PEPCID AND TXA ORDERED PRIOR TO THE START OF IV MED. PT TAKEN TO OR WITH NO FURTHER INCIDENT AND PT DENIED CONTINUING NAUSEA.
[2023-07-10] MEDS ORDERED: naloxone 0.4 mg/ml inj IV PRN (13:45)
[2023-07-10] MEDS ORDERED: HYDROmorphone 1 mg/ml syringe IV PRN (13:45)
[2023-07-10] MEDS ORDERED: magnesium hydroxide 30ml (MOM) UD suspension PO PRN (13:45)
[2023-07-10] MEDS ORDERED: HYDROmorphone inj. 0.5 MG/0.5 ML DISP.SYRIN IV PRN (13:45)
[2023-07-10] MEDS ORDERED: bisacodyl 10mg suppository rectal RC PRN (13:45)
[2023-07-10] MEDS ORDERED: oxyCODONE IR 5mg (immed. release) tablet PO PRN (13:45)
[2023-07-10] MEDS ORDERED: ondansetron/PF 4mg/2ml inj IV PRN ×2 (13:45→14:45)
[2023-07-10] MEDS ORDERED: diphenhydrAMINE 25mg capsule PO PRN ×2 (13:45)
[2023-07-10] MEDS ORDERED: ROPIVAcaine 0.5% (5mg/ml) 30ml vial IJ ONE (14:00)
--- NOTE | 2023-07-10 14:11 | NUR ---
PT STATES SHE SHOWERED X5 DAYS WITH HIBICLENS AND USED THE MUPIROCIN NASAL OINTMENT. PT EDUCATED ON USE OF IS. PT STATES SHE READ HANDOUT. PT HAS BILAT PALPABLE RADIAL PULSES PRESENT.
[2023-07-10] MEDS ORDERED: BUPIVACAINE/MELOXICAM 7 ML VIAL IL ONE (14:42)
[2023-07-10] MEDS ORDERED: hydrALAZINE 20mg/ml inj. IV PRN (14:45)
[2023-07-10] MEDS ORDERED: ringers solution, lacted 1,000 ML IV SCH (14:45)
[2023-07-10] MEDS ORDERED: meperidine/PF 25mg/ml syringe IV PRN ×2 (14:45)
[2023-07-10] MEDS ORDERED: enalaprilat dihydrate 2.5mg/2ml vial IV PRN (14:45)
[2023-07-10] MEDS ORDERED: ROPIVAcaine 0.2% (10 MG/5 ML) BOLUS INJECTION INTERSCALE PRN (14:50)
--- NOTE | 2023-07-10 15:24 | NUR ---
Received from OR via HOSPITAL BED, accompanied by Anesthesiologist DR. WALTERS and report given by Anesthesiolgist. PATIENT A&OX4, DENIES PAIN, V/S WNL, SCD ON , PIV 20G LFA, DRESSING SHOULDER WRAP TO RIGHT SIDE CDI W/ ONQ AT 2ML/HR AND COLD POWDER PACK
[2023-07-10] MEDS: ROPIVAcaine 0.2%/PF PUMP/bolus 545 ML INTERSCALE SCH (16:01)
--- NOTE | 2023-07-10 16:40 | NUR ---
Patient in room ORTHO 4023. I have received report from CLAIRE Pretty and had the opportunity to ask questions and assume patient care.
--- NOTE | 2023-07-10 16:44 | NUR ---
PATIENT HAS MET ALL CRITERIA FOR TRANSFER TO THE ORTHO FLOOR. VSS. DRESSINGS INTACT. BED LOW, CALL LIGHT PRESENT AND 2 RAILS UP. SARAVANAN RN PRESENT TO ACCEPT CARE OF PATIENT AND REPORT HAS BEEN CALLED. ALL QUESTIONS ANSWERED TO ACCEPTING RN. BELONGINGS SENT WITH PATIENT.
--- NOTE | 2023-07-10 17:50 | NUR ---
pt arrived on unit at 1700, patient is stable and in no distress, SCD's running, iv fluids running.
--- NOTE | 2023-07-10 18:56 | NUR ---
Problems reprioritized. Patient report given, questions answered & plan of care reviewed with CLAIRE Villarreal.
[2023-07-10] MEDS: ceFAZolin/D5W- 1GM premix 50 ML IV SCH (19:44)
[2023-07-10] MEDS: potassium cl 20mEq in 1/2 NS 1,000 ML IV SCH ×2 (19:47→21:45)
[2023-07-10] MEDS ORDERED: vancomycin/NS 1 GM ADD-VANTAGE 250 ML IV SCH (20:00)
[2023-07-10] MEDS: sennosides 8.6mg tablet PO SCH (20:33)
[2023-07-11] VITALS (8 sets, daily range): BP systolic 111–153; BP diastolic 48–90; PULSE 77–94; RESP 16–24; TEMP 97.3–98.4; O2SAT 92–95
[2023-07-11] MEDS: ceFAZolin/D5W- 1GM premix 50 ML IV SCH (01:49)
--- NOTE | 2023-07-11 06:12 | NUR ---
Problems reprioritized. Patient report given, questions answered & plan of care reviewed with KAUSHAL CASTILLO.
[2023-07-11] MEDS: potassium cl 20mEq in 1/2 NS 1,000 ML IV SCH ×3 (06:17→21:45)
[2023-07-11 06:20] LABS: BASOPHILS % (AUTO) 0.1 % (0-1); EOSINOPHILS % (AUTO) 0 % (0-6); HEMATOCRIT 36.2 % (35.0-45.0); LYMPHOCYTES % (AUTO) 15.9 % (21-51); MEAN CORPUSCULAR HEMOGLOBIN 31.4 PG (27.0-31.0); MEAN CORPUSCULAR HGB CONC 33.3 g/dL (33.0-36.5); MEAN CORPUSCULAR VOLUME 94.4 FL (78-98); MEAN PLATELET VOLUME 8.4 FL (7.4-10.4); MONOCYTES # (AUTO) 0.3 X10'3 (0-0.9); PLATELET COUNT 182 X10'3 (140-440); RED BLOOD COUNT 3.84 X10'6 (4.20-5.60); RED CELL DISTRIBUTION WIDTH 13.7 % (11.5-14.5); WHITE BLOOD COUNT 6.3 X10'3 (4.5-11.0)
[2023-07-11 06:32] LABS: ANION GAP 11 (8-16); CHLORIDE 104 MMOL/L (99-107); POTASSIUM 4.4 MMOL/L (3.5-5.1); SODIUM 136 MMOL/L (135-145); TOTAL CARBON DIOXIDE 21.1 MMOL/L (24-32)
[2023-07-11] MEDS: EMPAGLIFLOZIN 10 MG TABLET PO SCH (07:44)
[2023-07-11] MEDS: OMEGA-3/DHA/EPA/FISH OIL 1 EACH CAPSULE.DR PO SCH (07:44)
[2023-07-11] MEDS: ROSUVASTATIN CALCIUM 5 MG TABLET PO SCH (08:00)
[2023-07-11] MEDS: VITAMIN B12 5000 MCG PO SCH (08:00)
[2023-07-11] MEDS: aspirin 325mg tablet PO SCH (08:30)
--- NOTE | 2023-07-11 10:12 | NUR ---
as clinical instructor i reviewed student nurse physical assessment
--- NOTE | 2023-07-11 13:53 | NUR ---
Joint surgery consult: Pt s/p shoulder surgery per EMR. Pt seen earlier today for high protein nutrition education. RD contact also provided and encouraged pt to reach out for any nutrition questions or concerns. Addendum: 07/11/23 at [address] Amended: Links added.
--- NOTE | 2023-07-11 16:29 | NUR ---
safety relief valve technician documentation: I have reviewed and agree with all interventions, assessments performed and documented by Edith EASLEY.
[2023-07-11] MEDS ORDERED: acetaminophen 325mg tablet PO PRN (20:00)
[2023-07-11] MEDS: sennosides 8.6mg tablet PO SCH (20:44)
[2023-07-12] VITALS (7 sets, daily range): BP systolic 121–168; BP diastolic 51–69; PULSE 71–94; RESP 16–20; TEMP 97.5–98; O2SAT 93–96
[2023-07-12] MEDS: potassium cl 20mEq in 1/2 NS 1,000 ML IV SCH (05:45)
--- NOTE | 2023-07-12 06:40 | NUR ---
Patient in room ORTHO 4023. I have received report from Abby RANGEL and had the opportunity to ask questions and assume patient care.
--- NOTE | 2023-07-12 06:44 | NUR ---
Problems reprioritized. Patient report given, questions answered & plan of care reviewed with KAUSHAL CARDONA.
[2023-07-12 07:12] LABS: BASOPHILS % (AUTO) 0.4 % (0-1); EOSINOPHILS # (AUTO) 0.1 X10'3 (0-0.9); EOSINOPHILS % (AUTO) 1.1 % (0-6); HEMOGLOBIN 11.8 g/dl (12.0-16.0); LYMPHOCYTES # (AUTO) 2.8 X10'3 (1.1-4.8); LYMPHOCYTES % (AUTO) 28.9 % (21-51); MEAN CORPUSCULAR HEMOGLOBIN 31.4 PG (27.0-31.0); MEAN CORPUSCULAR HGB CONC 33.6 g/dL (33.0-36.5); MEAN CORPUSCULAR VOLUME 93.5 FL (78-98); MEAN PLATELET VOLUME 8.6 FL (7.4-10.4); MONOCYTES % (AUTO) 10.6 % (2-12); NEUTROPHILS # (AUTO) 5.7 X10'3 (1.8-7.7); PLATELET COUNT 208 X10'3 (140-440); RED BLOOD COUNT 3.74 X10'6 (4.20-5.60); RED CELL DISTRIBUTION WIDTH 13.9 % (11.5-14.5); WHITE BLOOD COUNT 9.6 X10'3 (4.5-11.0)
[2023-07-12] MEDS: VITAMIN B12 5000 MCG PO SCH (08:00)
[2023-07-12] MEDS: ROSUVASTATIN CALCIUM 5 MG TABLET PO SCH (09:18)
[2023-07-12] MEDS: OMEGA-3/DHA/EPA/FISH OIL 1 EACH CAPSULE.DR PO SCH (09:18)
[2023-07-12] MEDS: aspirin 325mg tablet PO SCH (09:18)
[2023-07-12] MEDS: EMPAGLIFLOZIN 10 MG TABLET PO SCH (09:19)
[2023-07-12] MEDS: ROPIVAcaine 0.2%/PF PUMP/bolus 545 ML INTERSCALE SCH (14:50)
--- NOTE | 2023-07-12 17:39 | NUR ---
TAX REPRESENTATIVE documentation: I have reviewed and agree with all interventions, assessments performed and documented by Mireya EASLEY.
--- NOTE | 2023-07-12 18:45 | NUR ---
Problems reprioritized. Patient report given, questions answered & plan of care reviewed with Ruthann RANGEL.
[2023-07-12] MEDS: sennosides 8.6mg tablet PO SCH (21:00)
--- NOTE | 2023-07-12 22:50 | NUR ---
Student documentation: I have reviewed interventions, assessments performed and documented by Belkis SENA [facility].
[2023-07-13 06:00] VITALS: BP 115/60; PULSE 82; RESP 16; TEMP 97.8; O2SAT 95
--- NOTE | 2023-07-13 06:48 | NUR ---
Report to Han Osman.
[2023-07-13 07:45] LABS: BASOPHILS % (AUTO) 0.4 % (0-1); EOSINOPHILS # (AUTO) 0.4 X10'3 (0-0.9); EOSINOPHILS % (AUTO) 4.7 % (0-6); HEMATOCRIT 35.7 % (35.0-45.0); HEMOGLOBIN 11.9 g/dl (12.0-16.0); LYMPHOCYTES # (AUTO) 2.6 X10'3 (1.1-4.8); LYMPHOCYTES % (AUTO) 34.1 % (21-51); MEAN CORPUSCULAR HEMOGLOBIN 31.3 PG (27.0-31.0); MEAN CORPUSCULAR HGB CONC 33.4 g/dL (33.0-36.5); MEAN CORPUSCULAR VOLUME 93.7 FL (78-98); MONOCYTES # (AUTO) 0.8 X10'3 (0-0.9); NEUTROPHILS # (AUTO) 3.9 X10'3 (1.8-7.7); NEUTROPHILS % (AUTO) 49.8 % (42-75); PLATELET COUNT 198 X10'3 (140-440); RED BLOOD COUNT 3.81 X10'6 (4.20-5.60); WHITE BLOOD COUNT 7.7 X10'3 (4.5-11.0)
[2023-07-13 08:00] VITALS: RESP 16; O2SAT 96
[2023-07-13] MEDS: VITAMIN B12 5000 MCG PO SCH (08:00)
[2023-07-13] MEDS: OMEGA-3/DHA/EPA/FISH OIL 1 EACH CAPSULE.DR PO SCH (08:11)
[2023-07-13] MEDS: EMPAGLIFLOZIN 10 MG TABLET PO SCH (08:12)
[2023-07-13] MEDS: aspirin 325mg tablet PO SCH (08:12)
[2023-07-13] MEDS: ROSUVASTATIN CALCIUM 5 MG TABLET PO SCH (08:12)
[2023-07-13 11:03] VITALS: BP 101/49; PULSE 83; RESP 16; TEMP 98.1; O2SAT 96
--- NOTE | 2023-07-13 16:31 | NUR ---
Pt stable for d/c. IV discontinued prior to D/C. Patient left with all belongings and was transported via [facility] personnel in [facility] to [facility]. Report called to [facility] prior to transfer. Report given to KAUSHAL Perales. D/C @ 0163.
== END 2023-07-13 16:00 | DRG 483 ==
LOC: PAS IN 11:16 → ORTHO 4S 16:15
PROVIDERS: ADMIT Orthopaedic Surgery; ATTEND Orthopaedic Surgery
PROC: 0RRJ00Z Replacement of Right Shoulder Joint with Reverse Ball and Socket Synthetic Substitute, Open Approach (ICD-10-PCS; 2023-07-10)
PROC: 0LS30ZZ Reposition Right Upper Arm Tendon, Open Approach (ICD-10-PCS; 2023-07-10)
PROC: 3E0T3BZ Introduction of Anesthetic Agent into Peripheral Nerves and Plexi, Percutaneous Approach (ICD-10-PCS; 2023-07-10)
PROC: 0RPJ0JZ Removal of Synthetic Substitute from Right Shoulder Joint, Open Approach (ICD-10-PCS; principal; 2023-07-10 13:15)
DX: M75.121 Complete rotator cuff tear or rupture of right shoulder, not specified as traumatic (principal); G89.29 Other chronic pain; M75.21 Bicipital tendinitis, right shoulder; M54.9 Dorsalgia, unspecified; Z79.899 Other long term (current) drug therapy; Z88.5 Allergy status to narcotic agent; Z88.8 Allergy status to other drugs, medicaments and biological substances; Z91.018 Allergy to other foods; Z90.49 Acquired absence of other specified parts of digestive tract; Z90.710 Acquired absence of both cervix and uterus
CPT/HCPCS: 36415; 80051; 80053; 82948; 85025; 87070; 87075; 87081; 97110; 97161; 97530; A4565; A4618; A7000; C1758; C1776; G0378; J0690; J1100; J2250; J2274; J2405; J2704; J2765; J2795; J3370; J3480; J3490; J7120

== ENCOUNTER 2023-11-23 07:48 | Inpatient (IN) | payer MEDICARE, BC, MEDICAID ==
[2023-11-14 16:39] LABS: BASOPHILS % (AUTO) 0.4 % (0-1); EOSINOPHILS # (AUTO) 0.3 X10'3 (0-0.9); EOSINOPHILS % (AUTO) 3.6 % (0-6); LYMPHOCYTES # (AUTO) 2.6 X10'3 (1.1-4.8); MEAN CORPUSCULAR HEMOGLOBIN 30.3 PG (27.0-31.0); MEAN CORPUSCULAR HGB CONC 32.3 g/dL (33.0-36.5); MEAN CORPUSCULAR VOLUME 93.6 FL (78-98); MEAN PLATELET VOLUME 8.3 FL (7.4-10.4); MONOCYTES # (AUTO) 0.6 X10'3 (0-0.9); MONOCYTES % (AUTO) 9.2 % (2-12); NEUTROPHILS # (AUTO) 3.5 X10'3 (1.8-7.7); NEUTROPHILS % (AUTO) 49.8 % (42-75); PRE OP HEMOGLOBIN 13.9 g/dL (12.0-16.0); PRE OP PLATELET COUNT 224 X10'3 (140-440); PRE OP WHITE BLOOD COUNT 7.1 10'3 (4.8-10.8); RED CELL DISTRIBUTION WIDTH 14.2 % (11.5-14.5)
[2023-11-14 16:52] LABS: ALBUMIN 3.9 G/DL (3.4-5.0); BLOOD UREA NITROGEN 15 MG/DL (7-18); BUN/CREATININE RATIO 21.1 (10.0-20.0); CALCIUM 8.9 MG/DL (8.5-10.1); CHLORIDE 102 MMOL/L (99-107); CREATININE 0.71 MG/DL (0.40-0.90); PRE OP ANION GAP 13 (8-16); PRE OP BILIRUB, TOTAL 1.3 MG/DL (0.0-1.0); PRE OP GLUCOSE 195 MG/DL (70-104); PRE OP POTASSIUM 3.8 MMOL/L (3.4-5.1); PRE OP SODIUM 139 MMOL/L (135-145); TOTAL CARBON DIOXIDE 23.8 MMOL/L (24-32); eGFR 80 ML/MIN
[2023-11-14 17:16] LABS: ALBUMIN/GLOBULIN RATIO 1.1 (1.1-1.5); ALKALINE PHOSPHATASE 89 IU/L (46-116); HEMOGLOBIN A1C 7.6 % (4.5-6.2); PRE OP ALT 31 U/L (30-65); PRE OP AST 35 U/L (10-37); TOTAL PROTEIN 7.6 G/DL (6.4-8.2)
[~2023-11-23] VITALS: Ht 157.5 cm; Wt 78.2 kg
[2023-11-23] VITALS (34 sets, daily range): BP systolic 55–148; BP diastolic 25–83; PULSE 54–87; RESP 13–19; TEMP 97.7–98.1; O2SAT 96–100
[2023-11-23] MEDS: tranexamic acid inj. 1,000 MG in normal saline IV soln 100ML IV ONE (05:30)
[2023-11-23] MEDS: OXYCODONE 10 MG PO ONE (05:30)
[~2023-11-23 07:48] MED LIST changes: +CYAN100088 PO; +DICL100G59 TOP; -EMPA10TA PO; -FISH1CAP15 PO; +PANT20TA2 PO; -PREVAGEN PO; -[UNRECOGNIZED DRUG - OTHER] PO; -cefazolin 2gm/D5W 100mL 100 ML IV ONE; -famotidine 20mg tablet PO ONE; -ringers solution, lacted 1,000 ML IV SCH; -tranexamic acid 650mg tablet PO ONE; -vancomycin 1,500 MG in NS 300ml IV soln IV ONE
[2023-11-23] MEDS: metoclopramide 5 mg/ml inj IV ONE (09:48)
[2023-11-23] MEDS: celeCOXIB 100mg capsule PO ONE (09:49)
[2023-11-23] MEDS: acetaminophen 325mg tablet PO ONE (09:50)
[2023-11-23] MEDS: gabapentin 300mg capsule PO ONE (09:50)
[2023-11-23] MEDS: famotidine 20mg tablet PO ONE (09:51)
[2023-11-23] MEDS: ringers solution, lacted 1,000 ML IV SCH (09:51)
[2023-11-23] MEDS: cefazolin 2gm/D5W 100mL 100 ML IV ONE (09:52)
[2023-11-23] MEDS: vancomycin 1,500 MG in NS 300ml IV soln IV ONE (09:52)
[2023-11-23] MEDS ORDERED: vancomycin 1,000mg inj ONE (10:45)
[2023-11-23] MEDS ORDERED: BUPIVAcaine/dex-water/PF 7.5 mg/ml 2ml ampul ONE (11:25)
[2023-11-23] MEDS ORDERED: fentaNYL/PF 50MCG/1 ML 2ML syringe ONE (11:34)
[2023-11-23] MEDS ORDERED: MIDAZolam 1 MG/ML 5ML VIAL ONE (11:35)
[2023-11-23] MEDS ORDERED: hydrALAZINE 20mg/ml inj. IV PRN (12:15)
[2023-11-23] MEDS ORDERED: ondansetron/PF 4mg/2ml inj IV PRN ×2 (12:15→15:15)
[2023-11-23] MEDS ORDERED: labetalol 20mg/4ml (5mg/ml) syringe IV PRN (12:15)
[2023-11-23] MEDS ORDERED: fentaNYL/PF 50MCG/1 ML 2ML syringe IV PRN ×2 (12:15)
[2023-11-23] MEDS ORDERED: ringers solution, lacted 1,000 ML IV SCH (12:15)
[2023-11-23] MEDS: vancomycin 1,000mg inj IVT ONE (12:40)
[2023-11-23] MEDS: BUPIVACAINE/MELOXICAM 14 ML VIAL IL ONE (12:41)
[2023-11-23] MEDS ORDERED: ROPIVAcaine 0.5% (5mg/ml) 30ml vial ONE (12:46)
[2023-11-23] MEDS ORDERED: magnesium hydroxide 30ml (MOM) UD suspension PO PRN (15:15)
[2023-11-23] MEDS: potassium cl 20mEq in 1/2 NS 1,000 ML IV SCH (15:15)
[2023-11-23] MEDS ORDERED: HYDROmorphone inj. 0.5 MG/0.5 ML DISP.SYRIN IV PRN (15:15)
[2023-11-23] MEDS ORDERED: bisacodyl 10mg suppository rectal RC PRN (15:15)
[2023-11-23] MEDS ORDERED: oxyCODONE IR 5mg (immed. release) tablet PO PRN ×2 (15:15)
[2023-11-23] MEDS ORDERED: naloxone 0.4 mg/ml inj IV PRN (15:15)
[2023-11-23] MEDS ORDERED: diphenhydrAMINE 25mg capsule PO PRN ×2 (15:15)
[2023-11-23] MEDS: cefazolin 2gm/D5W 100mL 100 ML IV SCH (16:17)
[2023-11-23] MEDS: tranexamic acid inj. 800 MG in normal saline 100ml IV soln 92 ML IV ONE (16:58)
[2023-11-23] MEDS: VANCOMYCIN 1,500MG inj. 1,500 MG in normal saline 500ml IV soln 300 ML IV ONE (19:20)
[2023-11-23] MEDS: ascorbic acid 500mg tablet PO SCH (19:20)
[2023-11-23] MEDS: celeCOXIB 100mg capsule PO SCH (19:47)
[2023-11-23] MEDS: sennosides 8.6mg tablet PO SCH (20:09)
[2023-11-23] MEDS: gabapentin 300mg capsule PO SCH (20:17)
[2023-11-23] MEDS: HYDROmorphone 1 mg/ml syringe IV PRN (22:42)
[2023-11-24] VITALS (13 sets, daily range): BP systolic 111–180; BP diastolic 51–71; PULSE 68–96; RESP 15–20; TEMP 97.6–98.9; O2SAT 18–100
[2023-11-24] MEDS: atorvastatin 20mg tablet PO SCH (07:25)
[2023-11-24] MEDS: multivitamins, therapeutics tablet PO SCH (07:25)
[2023-11-24] MEDS: pantoprazole 40mg Tablet.DR PO SCH (07:26)
[2023-11-24] MEDS: aspirin 325mg tablet PO SCH (07:27)
[2023-11-24 08:45] LABS: BASOPHILS % (AUTO) 0.1 % (0-1); EOSINOPHILS # (AUTO) 0.1 X10'3 (0-0.9); EOSINOPHILS % (AUTO) 2.1 % (0-6); HEMATOCRIT 37.4 % (35.0-45.0); HEMOGLOBIN 12.3 g/dl (12.0-16.0); LYMPHOCYTES % (AUTO) 17.6 % (21-51); MEAN CORPUSCULAR HEMOGLOBIN 30.9 PG (27.0-31.0); MEAN CORPUSCULAR VOLUME 93.5 FL (78-98); MEAN PLATELET VOLUME 8.2 FL (7.4-10.4); MONOCYTES # (AUTO) 0.5 X10'3 (0-0.9); MONOCYTES % (AUTO) 8.4 % (2-12); NEUTROPHILS % (AUTO) 71.8 % (42-75); PLATELET COUNT 185 X10'3 (140-440); RED CELL DISTRIBUTION WIDTH 14.4 % (11.5-14.5); WHITE BLOOD COUNT 5.5 X10'3 (4.5-11.0)
[2023-11-24 09:19] LABS: CHLORIDE 106 MMOL/L (99-107); SODIUM 141 MMOL/L (135-145)
[2023-11-24 09:21] LABS: ANION GAP 11 (8-16); POTASSIUM 4.7 MMOL/L (3.5-5.1); TOTAL CARBON DIOXIDE 23.8 MMOL/L (24-32)
[2023-11-24] MEDS: acetaminophen 325mg tablet PO PRN (22:29)
[2023-11-25 06:00] VITALS: BP 147/71; PULSE 86; RESP 16; TEMP 98.1; O2SAT 95
[2023-11-25 06:41] LABS: BASOPHILS % (AUTO) 0.2 % (0-1); EOSINOPHILS # (AUTO) 0.2 X10'3 (0-0.9); EOSINOPHILS % (AUTO) 4.1 % (0-6); HEMATOCRIT 34.9 % (35.0-45.0); HEMOGLOBIN 11.6 g/dl (12.0-16.0); LYMPHOCYTES # (AUTO) 1.1 X10'3 (1.1-4.8); LYMPHOCYTES % (AUTO) 18.1 % (21-51); MEAN CORPUSCULAR HEMOGLOBIN 30.5 PG (27.0-31.0); MEAN CORPUSCULAR HGB CONC 33.2 g/dL (33.0-36.5); MEAN CORPUSCULAR VOLUME 91.7 FL (78-98); MEAN PLATELET VOLUME 8.1 FL (7.4-10.4); MONOCYTES # (AUTO) 0.8 X10'3 (0-0.9); NEUTROPHILS # (AUTO) 3.9 X10'3 (1.8-7.7); NEUTROPHILS % (AUTO) 64.6 % (42-75); PLATELET COUNT 195 X10'3 (140-440); RED CELL DISTRIBUTION WIDTH 14.4 % (11.5-14.5); WHITE BLOOD COUNT 6.1 X10'3 (4.5-11.0)
[2023-11-25 07:00] VITALS: RESP 18; O2SAT 99
[2023-11-25 10:00] VITALS: BP 134/74; PULSE 90; RESP 16; TEMP 98.8; O2SAT 95
== END 2023-11-25 11:12 | disposition home or self-care (01) | DRG 470 ==
LOC: PAS 07:48 → PAS IN 13:48 → ORTHO 4S 15:00 → OBSVTOIN 15:18
PROVIDERS: ADMIT Orthopaedic Surgery; ATTEND Orthopaedic Surgery
PROC: 3E0T3BZ Introduction of Anesthetic Agent into Peripheral Nerves and Plexi, Percutaneous Approach (ICD-10-PCS; 2023-11-23)
PROC: 0SRD069 Replacement of Left Knee Joint with Oxidized Zirconium on Polyethylene Synthetic Substitute, Cemented, Open Approach (ICD-10-PCS; principal; 2023-11-23 11:25)
DX: M17.12 Unilateral primary osteoarthritis, left knee (principal); Z88.6 Allergy status to analgesic agent; Z88.1 Allergy status to other antibiotic agents; Z88.5 Allergy status to narcotic agent; Z88.8 Allergy status to other drugs, medicaments and biological substances
CPT/HCPCS: 36415; 73560; 80051; 80053; 82948; 83036; 85025; 86885; 86900; 86901; 87081; 97116; 97161; 97530; A4215; A7000; C1713; C1776; G0378; J0690; J1170; J2250; J2370; J2765; J2795; J3010; J3370; J3480; J3490; J7040; J7120

== ENCOUNTER 2024-07-03 08:58 | Emergency (ER) | payer MEDICARE, BC, MEDICAID ==
[~2024-07-03] VITALS: Ht 157.5 cm; Wt 77.7 kg
[2024-07-03 11:30] VITALS: BP 132/74; PULSE 78; RESP 16; TEMP 97.5; O2SAT 96
== END 2024-07-03 11:40 | disposition home or self-care (01) ==
LOC: ER 08:59
DX: S80.912A Unspecified superficial injury of left knee, initial encounter (principal); S09.8XXA Other specified injuries of head, initial encounter; M25.562 Pain in left knee; Z88.6 Allergy status to analgesic agent; Z88.5 Allergy status to narcotic agent; Z79.899 Other long term (current) drug therapy; W19.XXXA Unspecified fall, initial encounter; Y93.89 Activity, other specified; Y92.89 Other specified places as the place of occurrence of the external cause; Y99.8 Other external cause status
CPT/HCPCS: 70486; 73564; 99284

== ENCOUNTER 2024-07-12 11:02 | Outpatient (CLI) | payer MEDICARE, BC, MEDICAID | END 2024-07-12 23:59 | disposition home or self-care (01) | LOC: RAD 11:02 | PROVIDERS: ATTEND Registered Nurse | DX: M77.31 Calcaneal spur, right foot (principal); M79.671 Pain in right foot | CPT/HCPCS: 73700 ==